=== PATIENT | male | born 1980 | race Caucasian/White ===

== ENCOUNTER 2020-08-09 19:05 | Emergency (ER) | payer BC, OTHER ==
[2020-08-09] MEDS ORDERED: Diphtheria,Pertussis(Acell),Tetanus Vaccine 0.5 ML Syringe IM ONE (19:26)
--- NOTE | 2020-08-09 19:49 | CR ---
Left hand: 3 views of the left hand were obtained. Comparison: No prior left hand exam is available. No fracture, dislocation or other bony abnormality is appreciated. Impression: 1. Nothing acute is appreciated on left hand exam. Diagnostic code #1 This report was dictated in MDT
--- NOTE | 2020-08-09 20:21 | EDM.PDOC ---
ED HPI GENERAL MEDICAL PROBLEM - General Chief Complaint: Laceration Stated Complaint: INJURED FINGER AT WORK Time Seen by Provider: 08/09/20 19:12 Source of Information: Reports: Patient History Limitations: Reports: No Limitations - History of Present Illness INITIAL COMMENTS - FREE TEXT/NARRATIVE: HISTORY AND PHYSICAL: History of present illness: Patient is a 39-year-old male who presents to the ED today with concern of puncture injury to his left hand middle finger that occurred just prior to arrival to the ED. Patient states he is not up-to-date on his tetanus vaccine. Patient states he was using a drill bit and missed the wall and went into his finger. Patient states he is concerned because he thought it may have touched the bone. Patient denies any other symptoms or concerns. Patient denies fever, chills, chest pain, shortness of breath, or cough. Denies headache, neck stiff ness, change in vision, syncope, or near syncope. Denies nausea, vomiting, abdominal pain, diarrhea, constipation, or dysuria. Has not noted any blood in urine or stool. Patient has been eating and drinking appropriately. Review of systems: As per history of present illness and below otherwise all systems reviewed and negative. Past medical history: As per history of present illness and as reviewed below otherwise noncontributory. Surgical history: As per history of present illness and as reviewed below otherwise noncontributory. Social history: See social history for further information Family history: As per history of present illness and as reviewed below otherwise noncontributory. Physical exam: General: Patient is alert, oriented, and in no acute distress. Patient sitting comfortably on exam table. HEENT: Atraumatic, normocephalic, pupils equal and reactive bilaterally, negative for conjunctival pallor or scleral icterus, mucous membranes moist, TMs normal bilaterally, throat clear, neck supple, nontender, trachea midline. No drooling or trismus noted. No meningeal signs. No hot potato voice noted. Lungs: Clear to auscultation, breath sounds equal bilaterally, chest nontender. Heart: S1S2, regular rate and rhythm without overt murmur Abdomen: Soft, nondistended, nontender. Negative for masses or hepatosplenomegaly. Negative for costovertebral tenderness. Pelvis: Stable nontender. Genitourinary: Deferred. Rectal: Deferred. Skin: Intact, warm, dry. No lesions or rashes noted. Extremities: Patients hands are dirty on exam. There is a pinpoint puncture wound of the mid nail of the left hand 4rd digit without bleeding. Patient has full ROM of all digits without deficit. Radial pulse grossly intact of the LUE with cap refill <2 seconds. Otherwise, atraumatic, negative for cords or calf pain. Neurovascular unremarkable. Neuro: Awake, alert, oriented. Cranial nerves II through XII unremarkable. Cerebellum unremarkable. Motor and sensory unremarkable throughout. Exam nonfocal. Notes: Will provider patient with antibiotic as his hands are dirty on exam with puncture wound. Discussed importance for follow-up with a primary care provider. Voices understanding and is agreeable to plan of care. Denies any further questions or concerns at this time. Diagnostics: Hand XR Therapeutics: tdap, wound care Prescription: Keflex Impression: Finger puncture wound, 3rd digit, right Plan: 1. Keep the area clean and dry. Continue to monitor for signs of infection as discussed. Take medication as prescribed. 2. Tylenol and/or ibuprofen as directed and as needed for pain management and discomfort. 3. Please follow-up with your primary care provider as discussed. Return to the ED as needed and as discussed. Definitive disposition and diagnosis as appropriate pending reevaluation and review of above. left middle finger Pain Score (Numeric/FACES): 7 - Related Data Allergies Allergy/AdvReac Type Severity Reaction Status Date / Time acetaminophen [From Vicodin] Allergy Nausea and Verified 05/18/14 11:56 Vomiting hydrocodone bitartrate Allergy Nausea and Verified 05/18/14 11:56 [From Vicodin] Vomiting hydromorphone [From Dilaudid] Allergy Other Verified 08/09/20 19:17 neomycin [Neomycin] Allergy Anaphylactic Verified 05/18/14 11:54 Shock Sulfa (Sulfonamide Allergy Diarrhea Verified 05/18/14 11:54 Antibiotics) cigarette smoke Allergy Unknown unknown Uncoded 04/14/14 13:51 melons Allergy Unknown Hives Uncoded 05/18/14 11:54 strawberries Allergy Unknown Hives Uncoded 05/18/14 11:54 Home Meds: Home Meds Albuterol 1 - 2 puff INH Q4H PRN 04/14/14 [History] Aleve 1 tab PO DAILY PRN 04/14/14 [History] cephALEXin [Keflex] 500 mg PO Q8H 5 Days #25 cap 08/09/20 [Rx] Past Medical History Respiratory History: Reports: Asthma - Past Surgical History Musculoskeletal Surgical History: Reports: Other (See Below) Other Musculoskeletal Surgeries/Procedures:: Medial Meniscus, Toe Repaired Social & Family History - Family History Endocrine/Metabolic: Reports: Diabetes, Type I, Hypothyroidism Oncologic: Reports: Lung - Tobacco Use Smoking Status *Q: Never Smoker - Recreational Drug Use Recreational Drug Use: No ED ROS GENERAL - Review of Systems Review Of Systems: Comprehensive ROS is negative, except as noted in HPI. ED EXAM, SKIN/RASH Exam: See Below (see dictation) Course - Vital Signs Last Recorded V/S: Last Vital Signs Temp 96.4 F L 08/09/20 19:14 Pulse 90 08/09/20 19:14 Resp 18 08/09/20 19:14 BP 150/85 H 08/09/20 19:14 Pulse Ox 96 08/09/20 19:14 - Orders/Labs/Meds Orders: Active Orders 24 hr Category Date Time Status Vaccines to be Administered [RC] PER UNIT ROUTINE Care 08/09/20 19:26 Active Meds: Medications Discontinued Medications Generic Name Dose Route Start Last Admin Trade Name Freq PRN Reason Stop Dose Admin Diphtheria/Tetanus/Acell Pertussis 0.5 ml 08/09/20 19:26 08/09/20 19:39 Adacel IM 08/09/20 19:27 0.5 ml .ONCE ONE Administration Departure - Departure Time of Disposition: 20:21 Disposition: Home, Self-Care 01 Clinical Impression: Puncture wound of finger Qualifiers: Encounter type: initial encounter Qualified Code(s): S61.239A - Puncture wound without foreign body of unspecified finger without damage to nail, initial encounter - Discharge Information Prescriptions: cephALEXin [Keflex] 500 mg PO Q8H 5 Days #25 cap Instructions: Puncture Wound, [id number] Referrals: PCP,None [Primary Care Provider] - Forms: ED Department Discharge Additional Instructions: The following information is given to patients seen in the emergency department who are being discharged to home. This information is to outline your options for follow-up care. We provide all patients seen in our emergency department with a follow-up referral. The need for follow-up, as well as the timing and circumstances, are variable depending upon the specifics of your emergency department visit. If you don't have a primary care physician on staff, we will provide you with a referral. We always advise you to contact your personal physician following an emergency department visit to inform them of the circumstance of the visit and for follow-up with them and/or the need for any referrals to a consulting specialist. The emergency department will also refer you to a specialist when appropriate. This referral assures that you have the opportunity for follow-up care with a specialist. All of these measure are taken in an effort to provide you with optimal care, which includes your follow-up. Under all circumstances we always encourage you to contact your private physician who remains a resource for coordinating your care. When calling for follow-up care, please make the office aware that this follow-up is from your recent emergency room visit. If for any reason you are refused follow-up, please contact the [facility] Emergency Department at and asked to speak to the emergency department charge nurse. [facility] [address] [place], [place] [id number] [place] [address] 1. Keep the area clean and dry. Continue to monitor for signs of infection as discussed. Take medication as prescribed. 2. Tylenol and/or ibuprofen as directed and as needed for pain management and discomfort. 3. Please follow-up with your primary care provider as discussed. Return to the ED as needed and as discussed. Sepsis Event Note (ED) - Evaluation Sepsis Screening Result: No Definite Risk - Focused Exam Vital Signs: Vital Signs Temp Pulse Resp BP Pulse Ox 08/09/20 19:14 96.4 F L 90 18 150/85 H 96 - My Orders Last 24 Hours: My Active Orders 08/09/20 19:26 Vaccines to be Administered [RC] PER UNIT ROUTINE - Assessment/Plan Last 24 Hours: My Active Orders 08/09/20 19:26 Vaccines to be Administered [RC] PER UNIT ROUTINE
== END 2020-08-09 20:45 | disposition home or self-care (01) ==
LOC: MW.ED 19:05
DX: S61.333A Puncture wound without foreign body of left middle finger with damage to nail, initial encounter (principal); J45.909 Unspecified asthma, uncomplicated; Z88.6 Allergy status to analgesic agent; Z88.5 Allergy status to narcotic agent; Z88.1 Allergy status to other antibiotic agents; Z88.2 Allergy status to sulfonamides; Z91.048 Other nonmedicinal substance allergy status; Z91.018 Allergy to other foods; Z23 Encounter for immunization; W29.8XXA Contact with other powered hand tools and household machinery, initial encounter; Y99.0 Civilian activity done for income or pay
CPT/HCPCS: 73130-26-LT; 73130-LT; 90471; 90715; 99283